=== PATIENT | female | born 1985 | race Caucasian/White ===

== ENCOUNTER 2022-02-19 08:37 | Outpatient (CLI) | payer BC, SELFPAY ==
[2022-02-19 14:01] LABS: Chloride* 104 mmol/L (96-114); Sodium* 136 mmol/L (135-149)
[2022-02-19 14:03] LABS: Alkaline Phosphatase* 60 U/L (40-150); Aspartate Amino Transferase* 31 U/L (12-35); Bilirubin Total* 0.3 mg/dL (0.1-1.5); Blood Urea Nitrogen* 17 mg/dL (5-24); Carbon Dioxide* 26 mmol/L (20-32); Cholesterol* 152 mg/dL (90-199); Creatinine* 0.7 mg/dL (0.5-1.5); Estimated Glomerular Filt Rate 116 ml/min; Total Protein* 6.4 g/dL (6.0-8.3)
[2022-02-19 14:04] LABS: Alanine Aminotransferase* 24 U/L (4-35); Calcium* 8.6 mg/dL (8.4-10.6); Glucose* 91 mg/dL (60-115); HDL Cholesterol* 58 mg/dL (>=50); LDL Cholesterol Calculated 83 mg/dL (<100); Triglycerides* 53 mg/dL (40-149)
== END 2022-02-19 08:38 | disposition home or self-care (01) ==
PROVIDERS: PCP Obstetrics & Gynecology; Visit Provider Family Medicine
DX: Z00.00 Encounter for general adult medical examination without abnormal findings (principal); Z30.9 Encounter for contraceptive management, unspecified; Z13.6 Encounter for screening for cardiovascular disorders
CPT/HCPCS: 80053; 80061

== ENCOUNTER 2022-03-12 07:47 | Outpatient (RCR) | payer BC, SELFPAY | END 2022-06-03 15:40 | disposition home or self-care (01) | PROVIDERS: PCP Obstetrics & Gynecology; Visit Provider Family Medicine | DX: M26.609 Unspecified temporomandibular joint disorder, unspecified side (principal); Z51.89 Encounter for other specified aftercare | CPT/HCPCS: 97110; 97140; 97161 ==